=== PATIENT | male | born 1985 | race African-American/Black ===

== ENCOUNTER 2019-07-27 21:06 | Emergency (ER) | payer MEDICARE, MEDICAID ==
[~2019-07-27] VITALS: Ht 185.4 cm; Wt 90.7 kg
--- NOTE | 2019-07-27 21:12 | NUR ---
no answer from pt in lobby
--- NOTE | 2019-07-27 21:19 | NUR ---
no answer in lobby or front of hospital
--- NOTE | 2019-07-27 22:07 | Emergency Room Report ---
History of Present Illness General Chief Complaint: To Be Triaged Present Illness HPI This a 34-year-old male who checked in with chief complaint of behavioral disorder. When the triage nurse call for him he did not respond. He put in the chief complaint and then left. I did not see this patient. Patient was not triaged. Medical Decision Making Diagnostic Impression: Primary Impression: LWBS Disposition: LEFT W/OUT BEING SEEN Condition: Stable Flavio Whiting MD Jul 27, 2019 22:07
[2019-07-27 22:15] VITALS: BP 141/77
--- NOTE | 2019-07-27 22:44 | Emergency Room Report ---
History of Present Illness General Chief Complaint: General Complaint Source: Patient Present Illness HPI Is a 34-year-old male who is right-hand dominant. He has a psychiatric history also. He presents with chief only left elbow pain. He said he fell today and landed on his elbow. He had some swelling to the tip of the elbow. Worse with movement. Better with rest. No other trauma. Initially patient checked then. He came back an hour later. Allergies: Coded Allergies: No Known Allergies (Unverified , 07/27/19) Patient History Past Medical History: see triage record, old chart reviewed, psych hx Past Surgical History: other Pertinent Family History: none Social History: Denies: smoking Immunizations: other Reviewed Nursing Documentation: PMH: Agreed; PSxH: Agreed Nursing Documentation-PMH Past Medical History: No Stated History Review of Systems Eye: Denies: eye pain, blurred vision ENT: Denies: ear pain, nose congestion, throat swelling Respiratory: Denies: cough, shortness of breath Cardiovascular: Denies: chest pain, palpitations Gastrointestinal: Denies: abdominal pain, diarrhea, nausea, vomiting Musculoskeletal: Reports: joint pain; Denies: back pain Skin: Denies: rash Neurological: Denies: headache, numbness Endocrine: Denies: increased thirst, increased urine Hematologic/Lymphatic: Denies: easy bruising All Other Systems: negative except mentioned in HPI Physical Exam Vital Signs Date Time Temp Pulse Resp B/P (MAP) Pulse Ox O2 Delivery O2 Flow Rate FiO2 07/27/19 22:09 98.2 92 18 141/77 (98) 97 Room Air Vitals unremarkable Sp02 EP Interpretation: reviewed, normal General Appearance: well appearing, no apparent distress, alert Head: normocephalic, atraumatic Eyes: bilateral eye PERRL, bilateral eye EOMI ENT: hearing grossly normal, normal pharynx Neck: full range of motion, supple, no meningismus Respiratory: chest non-tender, lungs clear, normal breath sounds Cardiovascular #1: regular rate, rhythm, no murmur Gastrointestinal: normal bowel sounds, non tender, no mass, no organomegaly, no bruit, non-distended Musculoskeletal: back normal, normal range of motion, gait/station normal, other - Left elbow with tenderness over the olecranon process. Mild edema. Full range of motion. Sensation normal. Psychiatric: mood/affect normal Medical Decision Making Diagnostic Impression: Primary Impression: Left elbow contusion Qualified Codes: S50.02XA - Contusion of left elbow, initial encounter ER Course Patient with elbow contusion. No fracture dislocation. Will discharge home. Other X-Ray Diagnostic Results Other X-Ray Diagnostic Results : X-Ray ordered: Left elbow x-rays # of Views/Limited Vs Complete: 3 View Indication: Pain EP Interpretation: Yes Interpretation: no dislocation, no soft tissue swelling, no fractures Impression: No acute disease Electronically Signed by: Flavio Whiting MD Last Vital Signs Date Time Temp Pulse Resp B/P (MAP) Pulse Ox O2 Delivery O2 Flow Rate FiO2 07/27/19 22:09 98.2 92 18 141/77 (98) 97 Room Air Status: improved Disposition: HOME, SELF-CARE Condition: Stable Scripts Ibuprofen* (MOTRIN*) 600 Mg Tablet 600 MG ORAL THREE TIMES A DAY, #30 TAB 0 Refills Prov: Flavio Whiting MD 07/27/19 Referrals: NON PHYSICIAN (PCP) Additional Instructions: Follow-up with your doctor in 7 days. Return if worse. Flavio Whiting MD Jul 27, 2019 22:44
--- NOTE | 2019-07-27 22:53 | NUR ---
ED Nurse Note: Patient walked in to ER c/o left elbow pain. Stated fell earlier today, wants to be checked up. Patient presented anxious, AAO x4, VSS at this time.
[2019-07-27] MEDS ORDERED: IBUPROFEN600 MG ORAL (23:09)
[2019-07-27 23:27] VITALS: BP 141/77
--- NOTE | 2019-07-27 23:28 | NUR ---
ED Nurse Note: Pt cleared by health care Provider for discharge. DC instructions/prescription was given and explained to pt and verbalized understanding of teachings. All medical deviecs such as ID band removed. Pt is AAO x4, ambulatory and left with all personal belongings.
--- NOTE | 2019-07-28 13:26 | Diagnostic Imaging Report ---
Indication: Left elbow pain Findings: 3 views of the left elbow were obtained. No acute fractures, malalignment, erosions or periostitis are identified. Soft tissues are unremarkable. Impression: No acute injury
== END 2019-07-27 23:28 | disposition home or self-care (01) ==
LOC: EMR 22:16
DX: S50.02XA Contusion of left elbow, initial encounter (principal); W19.XXXA Unspecified fall, initial encounter; Y92.9 Unspecified place or not applicable
CPT/HCPCS: 99283